=== PATIENT | female | born 1975 | race American Indian/Alaskan Native ===

== ENCOUNTER 2016-10-28 13:32 | Day surgery (SDC) | payer MEDICAID, OTHER ==
[~2016-10-28 13:32] MED LIST: ANCEF/STERILE WATER 2 GM/20 ML 20 ML IV SCH; HEPARIN SUB-Q NR; NACL 0.9% 1000 ML 1,000 ML IV SCH; PEPCID PO NR; REGLAN PO NR; VERSED IV NR; ceFAZolin 2 GM in NACL 0.9% 100 ML IV NR
[2016-10-28 14:22] LABS: Hematocrit 32.1 % (30.3-42.9); Hemoglobin 10.7 gm/dl (10.1-14.3)
--- NOTE | 2016-10-28 14:35 | Anesthesia Consultation ---
Anesthesia Consult and Med Hx Date of service: 10/28/16 - Airway Anesthetic Teeth Evaluation: Good ROM Head & Neck: Adequate Mental/Hyoid Distance: Adequate Mallampati Class: Class II Intubation Access Assessment: Probably Good - Pulmonary Exam CTA: Yes - Cardiac Exam Cardiac Exam: RRR - Pre-Operative Health Status ASA Pre-Surgery Classification: ASA3 Proposed Anesthetic Plan: General - Pulmonary Hx Smoking: No Hx Asthma: No Hx Sleep Apnea: No - Cardiovascular System Hx Hypertension: Yes (FOR 10+ YRS) Hx Heart Murmur: Yes (MVP) - Central Nervous System Hx Seizures: Yes ( A CHILD, LAST ONE AGE 8, UNKNOWN ETIOLOGY) CVA: No Hx Psychiatric Problems: No - Endocrine Hx End Stage Renal Disease: Yes (last dialysis yesterday through right permacath ) Hx Cirrhosis: No Hx Liver Disease: No Hx Non-Insulin Dependent Diabetes: No Hx Thyroid Disease: No - Hematic Hx Anemia: Yes - Other Systems Hx Cancer: No
--- NOTE | 2016-10-28 14:35 | Anesthesia Day of Surgery ---
Anesthesia Day of Surgery - Day of Surgery Patient Examined: Yes Patient H&P Reviewed: Yes Patient is NPO: Yes
[2016-10-28] MEDS ORDERED: DILAUDID IV PRN (14:36)
[2016-10-28] MEDS ORDERED: ZOFRAN IV PRN (14:36)
[2016-10-28] MEDS ORDERED: DIPRIVAN 10 MG/ML IV ONE (15:14)
[2016-10-28] MEDS ORDERED: XYLOCAINE MPF 2% ONE (15:14)
[2016-10-28] MEDS ORDERED: DILAUDID ONE (15:14)
[2016-10-28] MEDS ORDERED: ZEMURON IV ONE (15:14)
[2016-10-28] MEDS ORDERED: NACL P/F VIAL (10 ML) 10 ML ONE (15:40)
[2016-10-28] MEDS ORDERED: BLOXIVERZ ONE (15:59)
[2016-10-28] MEDS ORDERED: ROBINUL ONE (15:59)
[2016-10-28] MEDS ORDERED: ZOFRAN ONE (15:59)
[2016-10-28] MEDS ORDERED: NACL 0.9% 250ML IV ONE (16:30)
[2016-10-28] MEDS ORDERED: HEPARIN 10,000 UNITS/10 ML IV ONE (16:30)
[2016-10-28] MEDS ORDERED: MARCAINE 0.25% INFILTRATI ONE (16:31)
[2016-10-28] MEDS ORDERED: NACL P/F VIAL (10 ML) INFILTRATI ONE (16:31)
--- NOTE | 2016-10-28 16:38 | Post Operative Note ---
Pre-op diagnosis: End stage renal failure Post-op diagnosis: same Findings: omental adhesions, redundant omentum Procedure: lap PD cath insertion, lysis omental adhesions, omentopexy Anesthesia: MARLEENA Surgeon: ROSI CHENG Regional Sales Executive: JONNIE MCCORMICK Estimated blood loss: minimal Pathology: none Condition: stable Disposition: PACU
--- NOTE | 2016-10-28 16:41 | Discharge Summary ---
Short Stay Discharge Plan Weight Bearing Status: Full Weight Bearing Diet: regular Wound: keep clean and dry (PD cath flushing in dialysis unit on 10/30 -pt to call / make appt) Prescriptions: Ondansetron [Zofran TAB] 4 mg PO Q8HR PRN #14 tablet PRN Reason: Nausea oxyCODONE /ACETAMINOPHEN [Percocet 5/325] 1 tab PO Q4HR PRN #20 tab PRN Reason: Pain traMADol [Ultram 50 MG tab] 50 mg PO Q6HR PRN #20 tablet PRN Reason: Pain
[2016-10-28] MEDS ORDERED: APRESOLINE ONE (16:52)
[2016-10-28 17:45] VITALS: BP 134/80
--- NOTE | 2016-10-28 19:29 | Post Anesthesia Evaluation ---
- Post Anesthesia Evaluation Patient Participated: Yes Airway Patent: Yes Stable Respiratory Function: Yes Nausea/Vomiting: No Temp > 96.8F: Yes Pain Manageable: Yes Adequeate Hydration: Yes Anesthesia Complications: No Block Receding Appropriately: Not Applicable Patient on Ventilator: No
--- NOTE | 2016-10-28 20:44 | Operative Report ---
PREOPERATIVE DIAGNOSIS: End-stage renal failure. POSTOPERATIVE DIAGNOSIS: End-stage renal failure. OPERATIVE PROCEDURE: 1. Laparoscopic insertion of a peritoneal dialysis catheter. 2. Laparoscopic omental adhesions. 3. Laparoscopic omentopexy. ANESTHESIA: General endotracheal. SURGEON: Rey Dao MD CONTRACT LOADER: Dr. Navin Huerta. INDICATIONS: A 41-year-old female patient with end-stage renal failure, currently on hemodialysis, requires a transfer over to peritoneal dialysis program. She has undergone a several years ago. FINDINGS: Two areas of omental adhesions, one vascular, one avascular infraumbilical in the midline. Omentum is thin, but redundant dropping down to the pelvis, necessitating omentopexy. No abdominal wall hernia evident. Uterus was slightly larger than expected. No fibroids were evident. Minimal amount of clear ascitic fluid was noted in the pelvis. DESCRIPTION OF PROCEDURE: After satisfactory induction of general endotracheal anesthesia, abdomen was prepped and draped. Abdominal wall skin was covered with Ioban occlusive drape. Right-sided mid abdominal incision was made at the level of the umbilicus, close to the flank and a Veress needle was inserted in the peritoneal cavity. After adequate carbon dioxide insufflation up to 15 mmHg, a 5 mm trocar was inserted, through this, a 5 mm 30-degree angle scope was placed and under direct visualization, a right upper quadrant 5 mm port was placed. The omental adhesions were taken down using minimal amount of cautery. Hemostasis was quite adequate. The omentum was moved to the left upper quadrant. Below the costal margin, a small incision was made and the suture passer needle with a 0 Vicryl was inserted. Three slips of omentum were passed through and the omentum was pulled up and tied to the left upper quadrant and hemostasis was quite adequate. A 57 cm double cuffed coiled Tenckhoff catheter was soaked in saline solution for several minutes. Site of insertion was measured, this at the level of the umbilicus on the anterior abdominal wall and after infiltrating skin and subcutaneous tissue, a 2.5 transverse incision was made. This was deepened down to the anterior rectus fascia with a small opening was made. Under laparoscopic visualization, a Step-one trocar needle with a sheath was inserted and counterpunctured inferiorly in the midline. The needle was removed. The sheath was dilated using a dilator under trocar and the trocars were removed. A catheter guide was passed through the catheter and the catheter was inserted under laparoscopic visualization. The coiled aspect of the catheter was placed posterior to the uterus but anterior to the bowel loops. The deeper cuff was placed between the parietal peritoneum and the anterior rectus fascia. The superficial cuff was placed between the skin and subcutaneous tissue and the catheter was brought out and superior to the main incision. Titanium adapters and transistors were attached to the catheter and the catheter was flushed, which was visualized through the laparoscope and was aspirated. There was no kinking or twisting, the aspiration was adequate. About 150 mL of dilute heparin saline was instilled through the catheter and later was flushed with 20 mL saline containing 5000 units. Desufflation was done and both trocars were removed under direct visualization. No bleeding was noted at the trocar sites except a small subcutaneous bleeder. The main incision was closed in 2 layers with 3-0 Vicryl, the others with Monocryl. Bulky dressings were placed over the exit site and the incision and the tail end of the transistor was left outside after placing a Betadine plug far it to be flushed in the dialysis unit. She tolerated the procedure well, got extubated and transferred to postanesthesia care unit in satisfactory condition. JOB# [id number] RJN/LUCAS
== END 2016-10-28 13:33 | disposition home or self-care (01) ==
LOC: OR 13:32
PROVIDERS: ATTEND Surgery
DX: I12.0 Hypertensive chronic kidney disease with stage 5 chronic kidney disease or end stage renal disease (principal); N18.6 End stage renal disease; N73.6 Female pelvic peritoneal adhesions (postinfective); D64.9 Anemia, unspecified; M19.90 Unspecified osteoarthritis, unspecified site; F41.9 Anxiety disorder, unspecified; Z99.2 Dependence on renal dialysis; Z98.890 Other specified postprocedural states
CPT/HCPCS: 36415; 49324; 49326; 81025; 84132; 85014; 85018; C1750; J0360; J0690; J1170; J1644; J2250; J2405; J2704; J2710; J7030; J7050

== ENCOUNTER 2016-11-18 06:01 | Day surgery (SDC) | payer MEDICAID ==
[~2016-11-18 06:01] MED LIST changes: -ANCEF/STERILE WATER 2 GM/20 ML 20 ML IV SCH; -HEPARIN SUB-Q NR; -NACL 0.9% 1000 ML 1,000 ML IV SCH; -PEPCID PO NR; -REGLAN PO NR; -VERSED IV NR; -ceFAZolin 2 GM in NACL 0.9% 100 ML IV NR; +ceFAZolin 2 GM in NACL 0.9% 100 ML IV ONE
[2016-11-18] MEDS ORDERED: NACL BACTERIOSTATIC INFILTRATI ONE (06:33)
--- NOTE | 2016-11-18 06:51 | Anesthesia Day of Surgery ---
Anesthesia Day of Surgery - Day of Surgery Patient Examined: Yes Patient H&P Reviewed: Yes Patient is NPO: Yes
--- NOTE | 2016-11-18 06:51 | Anesthesia Consultation ---
Anesthesia Consult and Med Hx Date of service: 11/18/16 - Airway Anesthetic Teeth Evaluation: Good ROM Head & Neck: Adequate Mental/Hyoid Distance: Adequate Mallampati Class: Class II Intubation Access Assessment: Good - Pulmonary Exam CTA: Yes - Cardiac Exam Cardiac Exam: RRR - Pre-Operative Health Status ASA Pre-Surgery Classification: ASA3 Proposed Anesthetic Plan: General - Pulmonary Hx Smoking: No Hx Sleep Apnea: No - Cardiovascular System Hx Hypertension: Yes (FOR 10+ YRS) Hx Heart Murmur: Yes (MVP) - Central Nervous System Hx Seizures: Yes ( A CHILD, LAST ONE AGE 8, UNKNOWN ETIOLOGY) Hx Psychiatric Problems: No - Endocrine Hx End Stage Renal Disease: Yes (just started hemodialysis, still has vas cath) Hx Non-Insulin Dependent Diabetes: No Hx Thyroid Disease: No - Hematic Hx Anemia: Yes (LAST H/H 10.7/32.1, FROM 10-28-16) - Other Systems Hx Cancer: No
[2016-11-18] MEDS ORDERED: NORCO 5/325 PO PRN (06:52)
[2016-11-18] MEDS ORDERED: ZOFRAN IV PRN (06:52)
[2016-11-18] MEDS ORDERED: DILAUDID IV PRN (06:52)
[2016-11-18] MEDS ORDERED: ANCEF/STERILE WATER 2 GM/20 ML 2 GM/20 ML SYRINGE IV SCH (07:00)
[2016-11-18] MEDS ORDERED: VERSED IV NR (07:00)
[2016-11-18] MEDS ORDERED: LACTATED RINGERS 1,000 ML IV SCH (07:00)
[2016-11-18] MEDS ORDERED: PEPCID IV NR (07:00)
[2016-11-18] MEDS ORDERED: DIPRIVAN 10 MG/ML IV ONE (07:32)
[2016-11-18] MEDS ORDERED: SUBLIMAZE ONE (07:32)
[2016-11-18] MEDS ORDERED: XYLOCAINE MPF 2% ONE (07:32)
[2016-11-18] MEDS ORDERED: NACL 0.9% 1000 ML 1,000 ML IV SCH (08:00)
[2016-11-18] MEDS ORDERED: ZOFRAN ONE (08:15)
[2016-11-18] MEDS ORDERED: VERSED ONE (08:20)
[2016-11-18] MEDS ORDERED: MARCAINE 0.25% INFILTRATI ONE (08:31)
[2016-11-18] MEDS ORDERED: XYLOCAINE 1%/ EPI 1:100,000 INFILTRATI ONE (08:31)
[2016-11-18] MEDS ORDERED: NACL 0.9% IR ONE (09:00)
--- NOTE | 2016-11-18 09:11 | Post Operative Note ---
Pre-op diagnosis: Malf PD catheter Post-op diagnosis: same Findings: as above Procedure: removal of PD catheter Anesthesia: MAC Surgeon: ROSI CHENG Estimated blood loss: minimal Pathology: none Condition: stable Disposition: PACU
--- NOTE | 2016-11-18 09:13 | Discharge Summary ---
Short Stay Discharge Plan Weight Bearing Status: Full Weight Bearing Diet: regular Wound: open to air Follow up with: PRIMARY CARE, [Primary Care Provider] - 7 Days Prescriptions: oxyCODONE /ACETAMINOPHEN [Percocet 5/325] 1 tab PO Q6HR PRN #20 tablet PRN Reason: Pain
--- NOTE | 2016-11-18 09:15 | Discharge Summary ---
Short Stay Discharge Plan Follow up with: PRIMARY CARE, [Primary Care Provider] - 7 Days Prescriptions: Ondansetron [Zofran TAB] 4 mg PO Q8HR PRN #14 tablet PRN Reason: Nausea oxyCODONE /ACETAMINOPHEN [Percocet 5/325] 1 tab PO Q6HR PRN #20 tablet PRN Reason: Pain
[2016-11-18] MEDS ORDERED: HEPARIN IV NR (10:00)
--- NOTE | 2016-11-18 10:46 | Operative Report ---
PREOPERATIVE DIAGNOSIS: Malfunctioning peritoneal dialysis catheter. POSTOPERATIVE DIAGNOSIS: Malfunctioning peritoneal dialysis catheter. OPERATIVE PROCEDURE: Removal of malfunctioning peritoneal dialysis catheter. ANESTHESIA: IV sedation, local 1% Xylocaine with 0.25% Marcaine. SPECIMENS: None. INDICATIONS: A 41-year-old female patient with end-stage renal failure, who has been on hemodialysis, wished to convert to peritoneal dialysis. I inserted a laparoscopic PD catheter insertion with omentopexy and lysis of adhesions on 10/28/2016. She has been having significant pelvic pain with urinary symptoms and rectal pain, and she decided she will not pursue with the peritoneal dialysis and wanted this removed. After consultation with the Nephrology, she is brought in for removal of the catheter. FINDINGS: Since this is only 3 weeks since the earlier operations, some amount of edema and inflammation is noted. No purulent collections were noted in the subcutaneous space. DESCRIPTION OF PROCEDURE: After satisfactory IV sedation, operative area prepped and draped. Skin and subcutaneous tissue through the scar on the exit site were adequately infiltrated with local anesthetic consisting of lidocaine and Marcaine. A 2.5 cm incision was made, subcutaneous tissue was divided at the entry point and the subcutaneous portion of the catheter was traced down to the deeper cuff and the adhesions were taken down with cautery. Minimal bleeding was controlled by cautery. The intraperitoneal portion of the catheter was completely removed and minimal amount of PD fluid suctioned out. The fascial opening was closed with interrupted 0 Vicryl sutures. An elliptical incision was made at the exit site and the inflamed subcutaneous tissue was completely removed with the catheter. Hemostasis was checked by cautery. Both wounds were closed with 3-0 Vicryl subcutaneous and 4-0 Monocryl subcuticular sutures. She tolerated the procedure well. JOB# [id number] RJN/LUCAS
[2016-11-18 10:57] VITALS: BP 137/86
--- NOTE | 2016-11-19 01:48 | Admit Criteria Form ---
Admission Criteria Documentation: AMBULATORY SURGERY EXCEPTION CRITERIA Ambulatory Surgery Exception Criteria ( Place 'X' for any and all applicable criteria): Surgery or procedure performed on ambulatory basis may require inpatient stay for[A] ANY ONE of the following(1)(2)(3)(4)(5)(6)(7)(8)(9): [X] I. A preoperative situation, condition, or finding that warrants inpatient stay as indicated by ANY ONE of the following: [] a) Inpatient care needed because of severity of a disease or condition rather than the surgery (eg, severe cardiac or respiratory disease, severe infection) (15) (16 ) (17) (18) [] b) Emergent procedure (eg, angioplasty for acute ischemia)(19) [] c) Complex surgical approach or situation as indicated by ANY ONE of the following(3): [] i) Open approach needed instead of usual endoscopic, transcatheter, or other less invasive procedure [] ii) Difficult approach because of previous operation [] iii) Airway monitoring required after open neck procedures(20)(21) [] iv) Large mass requiring unusually extensive dissection [] v) Additional complicating feature requiring inpatient care (eg, drain management)(22(23): [X] d) Major surgery in a pt with high anesthetic risk as indicated by ANY ONE of the following (2)(3)(5)(7)(8): [X] i) ASA risk class III or higher (severe systemic disease impairing function) [D] [] ii) Advanced age (eg, older than 85 years)(14)(24) [] iii) Symptomatic heart failure(25) [] iv) Symptomatic asthma or COPD(8)(21) [] v) Morbid obesity with hemodynamic or respiratory problems(20)( 21)(26)(27) [] vi) Obstructive sleep apnea(20)(21) [] vii) Former premature infants who are younger than 60 weeks [] viii) High risk for severe postoperative abnormalities (eg, severe postoperative hypocalcemia after parathyroidectomy for severe hyperparathyroidism)(27)( 28) [] ix) Unstable angina(25) [] e) Drug-related risk requiring inpatient stay as indicated by ANY ONE of the following(5)(10)(14)(32)(33) [] i) Procedure requires discontinuing drugs or other therapy (eg , antiarrhythmic medication, antiseizure medication), which necessitates inpatient observation or treatment.(18)(31) [] ii) Major surgery and high risk drug use as indicated by ANY ONE of the following: [] 1) Active abuse of cocaine or similar drug [] 2) Monoamine oxidase inhibitor use [] 3) Other drug identified as posing risk [] f) Inadequate outpatient care situation as indicated by ANY ONE of the following(5)(10)(14)(32)(33) [] i) Patient lives remote from medical facility and procedure has urgent complication potential, and temporary nearby residence cannot be arranged [] ii) Patient will have postprocedure incapacitation and inadequate assistance at home, or alternative level of care cannot be arranged. [] iii) Patient will have long general anesthesia or procedure side effect resolution time, and competent person to stay with patient on first postoperative night at home or alternative level of care cannot be arranged. []iv) Other inadequate outpatient situation that cannot be handled by other means [] II. A perioperative event, condition, or finding that warrants inpatient stay as indicated by ANY ONE of the following (1)(2)(3): [] a) Inadequate physiologic recovery: cardiovascular, respiratory, or hemodynamic status not normal or near preoperative baseline(18) [] b) Hemodynamic instability [] c) Patient not alert with near normal or baseline mental status [] d) Temperature not normal or as expected and not appropriate for outpatient treatment of condition [] e) Ambulatory or appropriate activity level status not yet achieved post procedure [E](34)(35)(36) [] f) Operative site not appropriate (eg, unexpected or excessive drainage or bleeding) [] g) Postoperative effects not resolved or adequately managed (eg, significant pain or vomiting not appropriate for outpatient or next level of care)(10)(12) [] h) Complicating features requiring inpatient care as indicated by ANY ONE of the following(37): [] i) Severe complications of procedure (eg, bowel injury, airway compromise, vascular injury,severe hemorrhage) [] ii) Extensive (eg, dissection far beyond usual scope of procedure ) or prolonged (eg, 120 minutes beyond usual) surgery needed requiring inpatient postoperative care [] iii) Conversion to an open or complex procedure that requires inpatient care (eg, open vs laparoscopic cholecystectomy, abdominal vs vaginal hysterectomy)(38) [] iv) Comorbid condition or test result identified during or post procedure that requires inpatient care (7) [] v) Malignant hyperthermia(30) [] vi) Other complicating feature requiring inpatient care(22)(23) Inpatient stay may be needed until ALL of the following are present (1)(2)(3)(4) (5)(6)(10)(14)(33)(40): []a) Physiologic recovery: cardiovascular, respiratory, and hemodynamic status normal or near preoperative baseline []b) Hemodynamic stability []c) Patient alert, with near normal or baseline mental status []d) Temperature appropriate: patient afebrile or temperature appropriate for outpt treatment of condition []e) Activity level appropriate: ambulatory or appropriate activity level post procedure []f) Operative site appropriate as indicated by ALL of the following: []i) Site dry or with expected drainage []ii) Any blood noted is as expected for procedure. []g) Postoperative effects resolved or managed as indicated by ALL of the following: []i) Pain management appropriate for outpatient (or next level of) care(10) []ii) Minimal nausea and vomiting: if present, successfully treated with oral medication(12) []iii) Headache, dizziness, or drowsiness (if present) are mild. []h) Voiding status acceptable as indicated by ANY ONE of the following: []i) Voiding spontaneously []ii) No voiding but instructions given for follow-up in 6 to 8 hours []iii) Urinary catheter in place, and instructions given for follow-up []i) Complicating features requiring inpatient care manageable at a lower level of care(37) []j) Comorbid conditions manageable at a lower level of care(37) The original [employer] content created by [employer] has been revised. The portions of the content which have been revised are identified through the use of italic text or in bold, and [employer] [facility] [email or web address] has neither reviewed nor approved the modified material. All other unmodified content is copyright [employer]. Please see references footnoted in the original [employer] edition 2016 Admission Criteria Met: Yes
== END 2016-11-18 10:55 | disposition home or self-care (01) ==
LOC: OR 06:01
PROVIDERS: ATTEND Surgery
DX: T85.611A Breakdown (mechanical) of intraperitoneal dialysis catheter, initial encounter (principal); D64.9 Anemia, unspecified; F41.9 Anxiety disorder, unspecified; M19.90 Unspecified osteoarthritis, unspecified site; I12.0 Hypertensive chronic kidney disease with stage 5 chronic kidney disease or end stage renal disease; N18.6 End stage renal disease; Y83.8 Other surgical procedures as the cause of abnormal reaction of the patient, or of later complication, without mention of misadventure at the time of the procedure
CPT/HCPCS: 36415; 49422; 81025; 84132; J0690; J1644; J2250; J2704; J3010; J7030